=== PATIENT | male | born 1965 | race African-American/Black ===

== ENCOUNTER 2016-12-09 13:21 | Emergency (ER) | payer BC ==
[~2016-12-09] VITALS: Ht 175.3 cm; Wt 83.2 kg
[2016-12-09 13:29] VITALS: Ht 175.3 cm; Wt 83.2 kg
--- NOTE | 2016-12-09 13:58 | EMERGENCY ROOM VISIT NOTE ---
History First contact with patient: 13:31 Chief Complaint: WOUND INFECTION Stated Complaint: BOIL Nursing Triage Summary: Triage Notes: Pt c/o abcess on left bicep. seen at [facility] 1 week ago, it was lanced and pt was placed on abx. Pt reports abcess has returned. 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 The patient states it has been there for approximately 2 weeks. He states that one week ago he went to [facility] and had the area excised, drained and he was placed on Bactrim. He states that it got better until the last several days when he noticed inflammation and tenderness again. He rates his discomfort a 1/10. He denies any fevers. He denies any drainage. The patient states that he was also treated for jock itch approximately 1-2 months ago. He was treated with ketoconazole orally and nystatin topical and it resolved. He states he has started to notice some dryness and dry patchy areas. He denies any urinary symptoms or penile discharge. Review of Systems A 10 system review of systems was completed with positives and pertinent negatives listed in the HPI. Past Medical/Surgical History patient denies Social History Smoking Status: Current Every Day Smoker Occupation Status: employed Current/Historical Medications Scheduled Clotrimazole (Topical) (Lotrimin Af), 1 APPLN TOP BID Sulfa/Trimethoprim (Bactrim Ds 800MG/160MG), 1 TAB PO BID Allergies Coded Allergies: No Known Allergies (Unverified , 12/09/16) Physical Exam Vital Signs Date Time Temp Pulse Resp B/P Pulse Ox O2 Delivery O2 Flow Rate FiO2 12/09/16 14:49 37.0 62 18 118/81 98 12/09/16 14:48 62 18 118/81 98 Room Air 12/09/16 13:29 37.0 61 18 122/84 98 Room Air Physical Exam VITALS: Vitals are noted on the nurse's note and reviewed by myself. Vital signs stable. GENERAL: The patient is afebrile, in no acute distress, nondiaphoretic, well- developed well-nourished. SKIN: There is a very small, raised area to the left medial proximal upper extremity . There is no fluctuance or drainage. There is mild tenderness. In addition on evaluation of the skin in the genital region, there are several small, less than 1 cm in diameter dry patchy areas over the suprapubic area. There are no ulcerated lesions. There is no drainage. There is no tenting of the skin. Capillary reflex less than 2 seconds. HEAD: Normocephalic atraumatic. EARS: The external ears are normal in appearance. EYES: Pupils equal round and reactive to light and accommodation. Conjunctivae without injection, sclerae without icterus. Extraocular movements intact. NOSE: Patent, turbinates without inflammation or discharge. MOUTH: Mucous membranes moist. Tonsils are not enlarged. Pharynx without erythema or exudate. Uvula midline. Airway patent. Tongue does not deviate. NECK: Supple without nuchal rigidity. No lymphadenopathy. No thyromegaly. Cervical spine is nontender. No JVD. HEART: Regular rate and rhythm without murmurs gallops or rubs. LUNGS: Clear to auscultation bilaterally without wheezes, rales or rhonchi. No retractions or accessory muscle use. MUSCULOSKELETAL: No muscle atrophy, erythema, or edema noted. Full range of motion in all extremities.Normal gait. Strength 5/5 throughout. NEURO: Patient was alert and oriented to person place and time. No focal neurological deficits. Medical Decision & Procedures Laboratory Results 12/09/16 13:58 Red Blood Count 4.65, Mean Corpuscular Volume 93.5, Mean Corpuscular Hemoglobin 33.5, Mean Corpuscular Hemoglobin Concent 35.9, Mean Platelet Volume 8.7, Neutrophils (%) (Auto) 45.3, Lymphocytes (%) (Auto) 37.7, Monocytes (%) (Auto) 6.0, Eosinophils (%) (Auto) 10.2, Basophils (%) (Auto) 0.5, Neutrophils # (Auto ) 3.52, Lymphocytes # (Auto) 2.93, Monocytes # (Auto) 0.47, Eosinophils # (Auto ) 0.79, Basophils # (Auto) 0.04 12/09/16 13:58 Test 12/09/16 13:58 White Blood Count 7.77 K/uL (4.8-10.8) Red Blood Count 4.65 M/uL (4.7-6.1) Hemoglobin 15.6 g/dL (14.0-18.0) Hematocrit 43.5 % (42-52) Mean Corpuscular Volume 93.5 fL (80-100) Mean Corpuscular Hemoglobin 33.5 pg (25-34) Mean Corpuscular Hemoglobin Concent 35.9 g/dl (32-36) Platelet Count 255 K/uL (130-400) Mean Platelet Volume 8.7 fL (7.4-10.4) Neutrophils (%) (Auto) 45.3 % Lymphocytes (%) (Auto) 37.7 % Monocytes (%) (Auto) 6.0 % Eosinophils (%) (Auto) 10.2 % Basophils (%) (Auto) 0.5 % Neutrophils # (Auto) 3.52 K/uL (1.4-6.5) Lymphocytes # (Auto) 2.93 K/uL (1.2-3.4) Monocytes # (Auto) 0.47 K/uL (0.11-0.59) Eosinophils # (Auto) 0.79 K/uL (0-0.5) Basophils # (Auto) 0.04 K/uL (0-0.2) RDW Standard Deviation 47.0 fL (36.4-46.3) RDW Coefficient of Variation 13.8 % (11.5-14.5) Immature Granulocyte % (Auto) 0.3 % Immature Granulocyte # (Auto) 0.02 K/uL (0.00-0.02) Anion Gap 7.0 mmol/L (3-11) Est Creatinine Clear Calc Drug Dose 93.0 ml/min Estimated GFR () 108.4 Estimated GFR (Non- 93.5 BUN/Creatinine Ratio 8.2 (10-20) Calcium Level 9.2 mg/dl (8.5-10.1) Total Bilirubin 0.3 mg/dl (0.2-1) Aspartate Amino Transf (AST/SGOT) 17 U/L (15-37) Alanine Aminotransferase (ALT/SGPT) 18 U/L (12-78) Alkaline Phosphatase 51 U/L (45-117) Total Protein 7.4 gm/dl (6.4-8.2) Albumin 3.6 gm/dl (3.4-5.0) Globulin 3.8 gm/dl (2.5-4.0) Albumin/Globulin Ratio 0.9 (0.9-2) Procedure I examined the patient. After saline and Betadine cleansing and 2 mL of 1% buffered lidocaine anesthesia, the abscess was incised with a number 11 scalpel blade. A small amount of purulent material was released with more expressed by pressure. A swab was obtained for culture. The abscess cavity was further probed with a needle sheet pile driver operator and the deep pocket expressed. The abscess cavity was then irrigated with sterile saline under pressure. The area was then packed with plain packing. The area was cleaned with sterile saline and dressed with bacitracin and a bulky bandage. The patient tolerated the procedure well. ED Course The patient was seen and examined. Previous visits were reviewed. He does not have a fever or leukocytosis. He is not anemic. He has a very minimal eosinophilia which is fairly similar compared to previous. He was advised of this and is likely nonspecific. He states he does have trouble with allergies and allergic rhinitis. The patient has a dry patchy rash in the suprapubic area. This may represent tinea cruris. It does not fluoresce under a Salazar lamp. He will be placed on clotrimazole cream. Additionally, the patient has a small abscess to the left arm. It was incised injury and as above. There is no significant cellulitis. The patient was given a prescription for Bactrim. He should return in 24-48 hours to have the wound rechecked and packing removed. The patient was advised to follow-up with a general surgeon if an underlying cyst persists or if he has recurrence of the infection in the arm. He should return to the ER with any worsening symptoms. Medical Decision The differential diagnosis includes tinea curious, sexually-transmitted infection, erythrasma, abscess, cyst, DVT, cellulitis, among others Impression Primary Impression: Abscess Additional Impression: Tinea cruris Departure Information Dispostion Home / Self-Care Condition GOOD Prescriptions Clotrimazole (Topical) (LOTRIMIN AF) 1 % Cre 1 APPLN TOP BID for 7 Days, #24 GM Prov: Julia Almanzar PA-C 12/09/16 Sulfa/Trimethoprim (Bactrim Ds 800MG/160MG) Tab 1 TAB PO BID for 7 Days, #14 TAB Prov: Juila Almanzar PA-C 12/09/16 Referrals No Doctor, Assigned (PCP) Patient Instructions ED Abscess IandD, ED Infec Skin Fungal Tinea, My [facility] Additional Instructions Use the cream every 12 hours for 7 days Start the Bactrim if any redness, swelling, warmth develops in the left upper arm Return in 48 hours for recheck and packing removal Return sooner with any worsening symptoms Follow-up with your family doctor for further evaluation and management Problem Qualifiers
[2016-12-09] MEDS ORDERED: XYLOCAINE 1%/SOD BICARB 20 ML VIAL INFIL ONE (14:00)
[2016-12-09 14:06] LABS: BASO % 0.5 %; BASO ABS # 0.04 K/uL (0-0.2); COMPLETE YES; EOS % 10.2 %; HEMATOCRIT 43.5 % (42-52); IG% 0.3 %; LYMPH % 37.7 %; LYMPH ABS # 2.93 K/uL (1.2-3.4); MEAN CELL VOLUME 93.5 fL (80-100); MEAN CORPUSCULAR HEMOGLOBIN 33.5 pg (25-34); MEAN CORPUSCULAR HGB CONC 35.9 g/dl (32-36); MEAN PLATELET VOLUME 8.7 fL (7.4-10.4); NEUT % 45.3 %; PLATELET COUNT 255 K/uL (130-400); RED BLOOD COUNT 4.65 M/uL (4.7-6.1); WHITE BLOOD COUNT 7.77 K/uL (4.8-10.8)
[2016-12-09 14:23] LABS: BUN/CREATININE RATIO 8.2 (10-20); CALCIUM 9.2 mg/dl (8.5-10.1); CREATININE 0.94 mg/dl (0.60-1.40); POTASSIUM 4.2 mmol/L (3.5-5.1)
[2016-12-09 14:26] LABS: ALB/GLOB RATIO 0.9 (0.9-2)
[2016-12-09] MEDS ORDERED: SULF800T23 PO (14:35)
[2016-12-09] MEDS ORDERED: CLOT1CRE4 TOP (14:35)
[2016-12-09 14:49] VITALS: BP 118/81; PULSE 62; TEMP 37; O2SAT 98
--- NOTE | 2016-12-11 11:27 | Pharmacy Progress Note ---
ED Pharmacist Culture FollowUp Date of Service: Dec 11, 2016. Patient was sent home with a prescription for Bactrim DS 1 PO BID x 7 days, which should cover the Staph Aureus growing from the patient's L arm abscess culture. No action required at this time. Patient was to f/u in 48 hrs per provider's note.
== END 2016-12-09 14:51 | disposition home or self-care (01) ==
LOC: C.EDB 13:22 → C.EDD 14:51
DX: L02.414 Cutaneous abscess of left upper limb (principal); B35.6 Tinea cruris; F17.200 Nicotine dependence, unspecified, uncomplicated